=== PATIENT | female | born 1990 | race Caucasian/White ===

== ENCOUNTER 2016-11-01 21:16 | Emergency (ER) | payer MEDICAID ==
[2016-11-01 22:44] VITALS: BP 122/75
== END 2016-11-01 22:44 | disposition home or self-care (01) ==
LOC: ED 21:16
DX: H10.32 Unspecified acute conjunctivitis, left eye (principal); S05.12XA Contusion of eyeball and orbital tissues, left eye, initial encounter; X58.XXXA Exposure to other specified factors, initial encounter; Y93.89 Activity, other specified; Y92.89 Other specified places as the place of occurrence of the external cause; Y99.8 Other external cause status
CPT/HCPCS: J7512

== ENCOUNTER 2018-07-17 18:55 | Emergency (ER) | payer MEDICAID ==
[~2018-07-17] VITALS: Ht 154.9 cm; Wt 48.5 kg
[2018-07-17 19:02] VITALS: Ht 154.9 cm; Wt 48.5 kg
[2018-07-17 19:53] LABS: BASOPHIL % 0.5 % (0-2); PLATELET COUNT 258 x10^3mcL (130-400); RED CELL DISTRIBUTION WIDTH 11.8 % (11.5-14.5)
[2018-07-17 19:56] LABS: CALCIUM 8.7 mg/dL (8.5-10.1); CARBON DIOXIDE 28.9 mmol/L (21-32); CHLORIDE SERUM 105 mmol/L (98-107); CREATININE SERUM 0.8 mg/dL (0.6-1.0); GFR1 > 60 mL/min; GLUCOSE SERUM 95 mg/dL (74-106); POTASSIUM SERUM 3.6 mmol/L (3.5-5.1); SODIUM SERUM 140 mmol/L (136-145)
[2018-07-17 20:01] LABS: ALBUMIN 3.8 g/dL (3.4-5.0); ALKALINE PHOSPHATASE 61 U/L (46-116); ALT/SGPT 29 U/L (14-59); AST/SGOT 9 U/L (15-37); BILIRUBIN TOTAL 0.3 mg/dL (0.20-1.00); TOTAL PROTEIN, SERUM 7.1 g/dL (6.4-8.2)
[2018-07-17 23:25] VITALS: BP 109/54
== END 2018-07-17 22:04 | disposition home or self-care (01) ==
LOC: ED 18:55
PROVIDERS: Emergency Medicine
DX: R10.30 Lower abdominal pain, unspecified (principal); N83.209 Unspecified ovarian cyst, unspecified side; Z91.041 Radiographic dye allergy status
CPT/HCPCS: 36415; Q0092

== ENCOUNTER 2019-08-18 14:58 | Emergency (ER) | payer MEDICAID ==
[~2019-08-18] VITALS: Ht 154.9 cm; Wt 46.7 kg
[2019-08-18 15:09] VITALS: Ht 154.9 cm; Wt 46.7 kg
[2019-08-18 15:53] LABS: microscopic required? NO
[2019-08-18 16:00] LABS: UA SPECIFIC GRAVITY 1.015 (1.005-1.035); urine erythrocyte NEGATIVE (NEGATIVE)
[2019-08-18 17:50] VITALS: BP 107/71
== END 2019-08-18 17:51 | disposition home or self-care (01) ==
LOC: ED 14:58
PROVIDERS: Emergency Medicine
DX: R10.32 Left lower quadrant pain (principal); R10.31 Right lower quadrant pain; R10.2 Pelvic and perineal pain; Z11.3 Encounter for screening for infections with a predominantly sexual mode of transmission
CPT/HCPCS: J0696; J1885; Q0092